=== PATIENT | male | born 1965 | race Caucasian/White ===

== ENCOUNTER 2017-04-04 12:17 | Inpatient (IN) ==
--- NOTE | 2017-04-04 12:44 | Emergency Department Note ---
General Adult HPI - General Chief complaint: Extremity Problem,Nontraumatic Stated complaint: possible DVT, infection to L lower leg Time Seen by Provider: 04/04/17 12:25 Source: patient Mode of arrival: ambulatory Limitations: no limitations - Related Data Home Medications Medication Instructions Recorded Confirmed Atenolol [Tenormin] 25 mg PO DAILY 04/04/17 04/04/17 Lisinopril [Zestril] 40 mg PO DAILY 04/04/17 04/04/17 Omeprazole 20 mg PO DAILY 04/04/17 04/04/17 Simvastatin [Zocor] 80 mg PO HS 04/04/17 04/04/17 Allergies Allergy/AdvReac Type Severity Reaction Status Date / Time No Known Drug Allergies Allergy Verified 04/04/17 12:19 Physical Exam - General Limitations: no limitations Course Vital Signs Temperature 100.3 F H 04/04/17 12:20 Pulse Rate 105 H 04/04/17 12:20 Respiratory Rate 28 H 04/04/17 12:20 Blood Pressure 128/79 04/04/17 12:20 Pulse Oximetry (%) 96 04/04/17 12:20 Temperature 100.3 F H 04/04/17 12:20 Pulse Rate 105 H 04/04/17 12:20 Respiratory Rate 28 H 04/04/17 12:20 Blood Pressure 128/79 04/04/17 12:20 Pulse Oximetry (%) 96 04/04/17 12:20 Disposition Condition: Fair
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
[2017-04-04 13:58] LABS: Basophils # (Auto) 0 K/mcL (0.0-0.3); Basophils % (Auto) 0 % (0.0-2.0); Eosinophils # (Auto) 0 K/mcL (0.0-0.7); Eosinophils % (Auto) 0 % (0.0-7.0); Granulocytes % (Auto) 93.5 % (38.0-78.0); Lymphocytes # (Auto) 0.5 K/mcL (1.5-4.8); Lymphocytes % (Auto) 2.3 % (15.5-49.0); Mean Cell Volume 91.3 fL (80.0-100.0); Mean Corpuscular HGB Conc 33.8 g/dL (31.0-36.0); Mean Corpuscular Hemoglobin 30.8 pg (26.0-34.0); Monocytes % (Auto) 4.2 % (1.0-12.0); Platelet Count 218 K/mcL (140-440); RBC 4.81 M/mcL (4.50-5.90); Red Cell Distribution Width 13.6 % (11.5-14.5)
[2017-04-04] MEDS ORDERED: ACETAMINOPHEN 325 MG TABLET PO ONE (14:03)
[2017-04-04 14:17] LABS: ALT/SGPT 38 U/l (0-40); Albumin/Globulin Ratio 1.3 (1.0-2.3); Alkaline Phosphatase 69 U/L (39-117); Blood Urea Nitrogen 14 mg/dl (6-20); C-Reactive Protein 17.6 mg/dl (0.0-0.8)
[2017-04-04] MEDS ORDERED: 0.9 % SODIUM CHLORIDE 1,000 ML IV ONE ×3 (14:20→15:14)
[2017-04-04] MEDS ORDERED: PIPERACILLIN SODIUM/TAZOBACTAM 3.375 GM in DEXTROSE 5% IN WATER 50 ML IV ONE (14:26)
[2017-04-04] MEDS ORDERED: VANCOMYCIN 1,000 MG in 0.9 % SODIUM CHLORIDE 250 ML IV ONE ×2 (14:27→15:14)
[2017-04-04] MEDS ORDERED: VANCOMYCIN 1,000 MG in 0.9 % SODIUM CHLORIDE 250 ML IV SCH (14:30)
[2017-04-04] MEDS ORDERED: PIPERACILLIN SODIUM/TAZOBACTAM 3.375 GM in DEXTROSE 5% IN WATER 50 ML IV SCH (14:30)
[2017-04-04 14:40] LABS: Erythrocyte Sedimentation Rate 20 mm/hr (0-15)
[2017-04-04] MEDS ORDERED: ZOLPIDEM 5 MG TABLET PO PRN (15:14)
[2017-04-04] MEDS ORDERED: ONDANSETRON 4 MG/2 ML VIAL IV PRN (15:14)
[2017-04-04] MEDS ORDERED: MAGNESIUM HYDROXIDE 30 ML ORAL.SUSP PO PRN (15:14)
[2017-04-04] MEDS ORDERED: VANCOMYCIN PER PHARMACY IV SCH (15:14)
[2017-04-04] MEDS ORDERED: IPRATROPIUM/ALBUTEROL 3 ML AMPUL.NEB NEB PRN (15:14)
[2017-04-04] MEDS ORDERED: NALOXONE HCL 0.4 MG/ML VIAL IV PRN (15:14)
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
--- NOTE | 2017-04-04 16:23 | Ultrasound Report ---
CLINICAL INFORMATION: Left leg pain and swelling TECHNIQUE: Grayscale and color flow Doppler spectral imaging COMPARISON: None. FINDINGS: Negative examination for deep venous thrombosis. Negative left common femoral vein, superficial femoral vein, popliteal vein. Negative calf veins. Greater and lesser saphenous veins are negative. There is a mass in the left inguinal region consistent with prominent lymph node. This measures 4.1 x 1.7 x 3.4 cm IMPRESSION: Negative left lower extremity deep venous ultrasound Interpreted and Authenticated by: Henry Zepeda 04/04/17
[2017-04-04] MEDS: 0.9 % SODIUM CHLORIDE 1,000 ML IV SCH (16:58)
[2017-04-04] MEDS: VANCOMYCIN 1,500 MG in 0.9 % SODIUM CHLORIDE 500 ML IV SCH (16:58)
[2017-04-04] MEDS: PIPERACILLIN SODIUM/TAZOBACTAM 3.375 GM in DEXTROSE 5% IN WATER 50 ML IV SCH (19:59)
[2017-04-04] MEDS: HEPARIN 5,000 UNIT/ML VIAL SQ SCH (20:26)
[2017-04-04] MEDS: SIMVASTATIN 40 MG TABLET PO SCH (20:27)
[2017-04-04] MEDS: 0.9 % SODIUM CHLORIDE 10 ML SYRINGE IV SCH (20:36)
[2017-04-05] MEDS: PIPERACILLIN SODIUM/TAZOBACTAM 3.375 GM in DEXTROSE 5% IN WATER 50 ML IV SCH ×5 (00:43→23:59)
[2017-04-05] MEDS: 0.9 % SODIUM CHLORIDE 1,000 ML IV SCH ×3 (01:31→10:45)
[2017-04-05] MEDS: VANCOMYCIN 1,500 MG in 0.9 % SODIUM CHLORIDE 500 ML IV SCH ×2 (03:36→16:24)
[2017-04-05] MEDS: 0.9 % SODIUM CHLORIDE 10 ML SYRINGE IV SCH ×3 (05:50→21:01)
[2017-04-05 06:09] LABS: Basophils # (Auto) 0 K/mcL (0.0-0.3); Basophils % (Auto) 0.1 % (0.0-2.0); Eosinophils # (Auto) 0 K/mcL (0.0-0.7); Eosinophils % (Auto) 0 % (0.0-7.0); Lymphocytes # (Auto) 0.8 K/mcL (1.5-4.8); Mean Cell Volume 91.8 fL (80.0-100.0); Mean Corpuscular HGB Conc 33.6 g/dL (31.0-36.0); Mean Corpuscular Hemoglobin 30.8 pg (26.0-34.0); Monocytes # (Auto) 0.8 K/mcL (0.1-0.9); Monocytes % (Auto) 4.9 % (1.0-12.0); Platelet Count 173 K/mcL (140-440); RBC 4.32 M/mcL (4.50-5.90)
[2017-04-05 06:30] LABS: ALT/SGPT 38 U/l (0-40); Albumin 3.2 gm/dL (3.2-5.2); Albumin/Globulin Ratio 1.1 (1.0-2.3); Alkaline Phosphatase 56 U/L (39-117); Bilirubin,Direct 0.3 mg/dL (0.0-0.3); Blood Urea Nitrogen 14 mg/dl (6-20); Gamma Glutamyl Transpeptidase 82 U/L (8-61); Magnesium 1.4 mg/dL (1.6-2.5); Uric Acid 4.6 mg/dL (2.5-8.0)
[2017-04-05] MEDS: OMEPRAZOLE 20 MG CAPSULE PO SCH (07:12)
[2017-04-05] MEDS ORDERED: MAGNESIUM SULFATE 2 GM/50 ML BAG IV ONE (08:30)
[2017-04-05] MEDS: ATENOLOL 50 MG TABLET PO SCH (10:44)
[2017-04-05] MEDS: LISINOPRIL 20 MG TABLET PO SCH (10:44)
[2017-04-05] MEDS: HEPARIN 5,000 UNIT/ML VIAL SQ SCH ×2 (10:45→20:06)
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
[2017-04-05] MEDS: oxyCODONE HCL 5 MG TABLET PO PRN (20:06)
[2017-04-05] MEDS: SIMVASTATIN 40 MG TABLET PO SCH (20:06)
[2017-04-05] MEDS: ACETAMINOPHEN 325 MG TABLET PO PRN (20:07)
[2017-04-06 05:06] LABS: Basophils # (Auto) 0 K/mcL (0.0-0.3); Basophils % (Auto) 0.3 % (0.0-2.0); Eosinophils # (Auto) 0.1 K/mcL (0.0-0.7); Eosinophils % (Auto) 1.2 % (0.0-7.0); Granulocytes % (Auto) 78.6 % (38.0-78.0); Lymphocytes # (Auto) 1.2 K/mcL (1.5-4.8); Lymphocytes % (Auto) 12.1 % (15.5-49.0); Mean Cell Volume 92.4 fL (80.0-100.0); Mean Corpuscular HGB Conc 33.4 g/dL (31.0-36.0); Mean Corpuscular Hemoglobin 30.9 pg (26.0-34.0); Monocytes # (Auto) 0.8 K/mcL (0.1-0.9); Monocytes % (Auto) 7.8 % (1.0-12.0); Platelet Count 168 K/mcL (140-440); RBC 4.27 M/mcL (4.50-5.90); Red Cell Distribution Width 14.1 % (11.5-14.5)
[2017-04-06 05:20] LABS: ALT/SGPT 46 U/l (0-40); Albumin 3.1 gm/dL (3.2-5.2); Alkaline Phosphatase 63 U/L (39-117); Bilirubin,Direct < 0.2 mg/dL (0.0-0.3); Blood Urea Nitrogen 12 mg/dl (6-20); Gamma Glutamyl Transpeptidase 103 U/L (8-61); Magnesium 2.1 mg/dL (1.6-2.5); Uric Acid 3.4 mg/dL (2.5-8.0)
[2017-04-06] MEDS: PIPERACILLIN SODIUM/TAZOBACTAM 3.375 GM in DEXTROSE 5% IN WATER 50 ML IV SCH ×3 (05:23→18:55)
[2017-04-06] MEDS: VANCOMYCIN 1,500 MG in 0.9 % SODIUM CHLORIDE 500 ML IV SCH ×2 (06:40→19:46)
[2017-04-06] MEDS: OMEPRAZOLE 20 MG CAPSULE PO SCH (06:41)
[2017-04-06] MEDS: 0.9 % SODIUM CHLORIDE 10 ML SYRINGE IV SCH ×3 (06:41→22:14)
[2017-04-06] MEDS: POTASSIUM CHLORIDE 20 MEQ PACKET PO SCH (08:43)
[2017-04-06] MEDS: NEUTRA PHOS 1 PACKET PO SCH ×2 (08:43→20:44)
[2017-04-06] MEDS: ATENOLOL 50 MG TABLET PO SCH (08:44)
[2017-04-06] MEDS: LISINOPRIL 20 MG TABLET PO SCH (08:46)
[2017-04-06] MEDS: HEPARIN 5,000 UNIT/ML VIAL SQ SCH ×2 (08:48→20:44)
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
[2017-04-06] MEDS ORDERED: FUROSEMIDE 20 MG TABLET PO ONE (12:47)
[2017-04-06] MEDS ORDERED: TETANUS AND DIPHTHERIA TOX IM ONE (12:48)
[2017-04-06] MEDS ORDERED: IPRATROPIUM/ALBUTEROL 3 ML AMPUL.NEB NEB PRN (13:04)
[2017-04-06] MEDS: 0.45 % SODIUM CHLORIDE 1,000 ML IV SCH (14:00)
[2017-04-06] MEDS: oxyCODONE HCL 5 MG TABLET PO PRN ×2 (15:24→20:50)
[2017-04-06] MEDS: SIMVASTATIN 40 MG TABLET PO SCH (20:44)
[2017-04-06] MEDS: ACETAMINOPHEN 325 MG TABLET PO PRN (22:19)
[2017-04-07] MEDS: PIPERACILLIN SODIUM/TAZOBACTAM 3.375 GM in DEXTROSE 5% IN WATER 50 ML IV SCH ×4 (00:02→18:30)
[2017-04-07] MEDS: oxyCODONE HCL 5 MG TABLET PO PRN ×4 (03:26→20:36)
[2017-04-07 05:42] LABS: Basophils # (Auto) 0 K/mcL (0.0-0.3); Basophils % (Auto) 0.3 % (0.0-2.0); Eosinophils # (Auto) 0.3 K/mcL (0.0-0.7); Granulocytes % (Auto) 66.2 % (38.0-78.0); Lymphocytes # (Auto) 1.9 K/mcL (1.5-4.8); Lymphocytes % (Auto) 17.9 % (15.5-49.0); Mean Cell Volume 91.8 fL (80.0-100.0); Mean Corpuscular HGB Conc 34.2 g/dL (31.0-36.0); Mean Corpuscular Hemoglobin 31.4 pg (26.0-34.0); Monocytes # (Auto) 1.4 K/mcL (0.1-0.9); Monocytes % (Auto) 12.6 % (1.0-12.0); Platelet Count 208 K/mcL (140-440); RBC 4.15 M/mcL (4.50-5.90); Red Cell Distribution Width 13.9 % (11.5-14.5)
[2017-04-07] MEDS: VANCOMYCIN 1,500 MG in 0.9 % SODIUM CHLORIDE 500 ML IV SCH ×4 (05:54→16:16)
[2017-04-07 05:55] LABS: ALT/SGPT 54 U/l (0-40); Albumin 3.4 gm/dL (3.2-5.2); Alkaline Phosphatase 85 U/L (39-117); Bilirubin,Direct 0.2 mg/dL (0.0-0.3); Blood Urea Nitrogen 10 mg/dl (6-20); Gamma Glutamyl Transpeptidase 126 U/L (8-61); Magnesium 1.8 mg/dL (1.6-2.5); Uric Acid 2.9 mg/dL (2.5-8.0)
[2017-04-07] MEDS: 0.9 % SODIUM CHLORIDE 10 ML SYRINGE IV SCH ×2 (06:44→12:30)
[2017-04-07] MEDS: 0.45 % SODIUM CHLORIDE 1,000 ML IV SCH (07:00)
[2017-04-07] MEDS: OMEPRAZOLE 20 MG CAPSULE PO SCH (07:16)
[2017-04-07] MEDS: ACETAMINOPHEN 325 MG TABLET PO PRN ×3 (07:18→20:36)
[2017-04-07] MEDS ORDERED: FUROSEMIDE 20 MG/2 ML VIAL IV ONE (07:25)
[2017-04-07] MEDS: POTASSIUM CHLORIDE 20 MEQ PACKET PO SCH (08:07)
[2017-04-07] MEDS: HEPARIN 5,000 UNIT/ML VIAL SQ SCH ×2 (08:51→20:35)
[2017-04-07] MEDS: ATENOLOL 50 MG TABLET PO SCH (08:52)
[2017-04-07] MEDS: NEUTRA PHOS 1 PACKET PO SCH ×2 (08:52→20:35)
[2017-04-07] MEDS: LISINOPRIL 20 MG TABLET PO SCH (09:36)
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
[2017-04-07] MEDS: SILVER SULFADIAZINE CREAM.TOP 25GM TOPICAL SCH (13:35)
--- NOTE | 2017-04-07 19:42 | General Surgery Consult Note ---
History of Present Illness Patient information: Note initiated : 04/07/17 at 7:31 pm Service Date, if different from initiated Date: [] Patient: Daniel Obando 52 y/o M admitted on 04/04/17 for Possible DVT, Infection L Leg/Sepsis, Cellulitis. Chief Complaint: [] Consult date: 04/07/17 Requesting physician: Gaby Prather (Evaluation for cellulitis LLE) History of present illness: I saw this gentleman in room [address],[facility] floor along with nursing staff and with Dr. Jay, Hospitalist physician later. Patient's was present in the room on both occasions. Currently they are vacationing here in [facility]. This is a 52 year old gentleman from [place], admitted via ER about 4 days ago with cellulitis of LLE. He is non smoker and non-alcoholic. Being treated with broad spectrum IV antibiotics and responding to same clinically. He had soft tissue and lymph edema of LLE manly over the leg and some what over the lower thigh area. There is resolving pressure related dermatitis of posterior leg which is constantly on pillows. Patient has h/o diabetes without PAD symptoms. He had suffered from similar illness in PAST whilst being outdoor and on bare feet. Needed IV antibiotics and hospitalization. Venous Doppler study of LLE is negative for DVT. Medications and Allergies Home Medications Medication Instructions Recorded Confirmed Type Atenolol [Tenormin] 25 mg PO DAILY 04/04/17 04/04/17 History Lisinopril [Zestril] 40 mg PO DAILY 04/04/17 04/04/17 History Omeprazole 20 mg PO DAILY 04/04/17 04/04/17 History Simvastatin [Zocor] 80 mg PO DAILY 04/04/17 04/04/17 History Allergies Allergy/AdvReac Type Severity Reaction Status Date / Time No Known Drug Allergies Allergy Verified 04/04/17 15:15 Exam Temp Pulse Resp BP Pulse Ox 97.5 F 86 20 145/74 97 04/07/17 16:00 04/07/17 16:00 04/07/17 16:00 04/07/17 16:00 04/07/17 16:00 - General physical appearance well developed, well nourished, no distress, no pain, other (Pitting assymtrical edematous LLE from ankle to lower thigh. ) - Eyes PERRL, normal ocular movement - ENT normal pinna, normal nares, normal mucosa, no hearing loss, no congestion - Head Head exam IM: Present: atraumatic, normal inspection, normocephalic - Neck no masses, no bruits, trachea midline, no lymphadectomy, no venous distension - Cardiovascular Cardiovascular exam IM: Present: normal rate and rhythm - Respiratory normal expansion, normal respiratory effort, clear to auscultation - Abdomen Abdomen: Present: soft, non tender, bowel sounds - Genitourinary Present: normal penis with no external lesions, testicles present - Integumentary Present: other (resolving dermatitis and folliculits of hair maily leg area, and some anterior lower thigh. ) - Neurologic Present: normal coordination, other (cooperative and good historian. NO focal neurological deficits. ) - Musculoskeletal Present: other (Dystrophyic fungal toe nails. Onychogryposis. Chronic dry open epidermal / dermal puncture ulcer wound at thip of left great toe with a deformed and fungal nail. ) - Psychiatric Present: oriented to time, oriented to person, oriented to place, speech is normal, memory intact, other (Keen to return home to [place]. ) Results - Labs 04/07/17 04:23 04/07/17 04:23 Abnormal lab results 04/07/17 04/07/17 Range/Units 04:23 04:23 RBC 4.15 L (4.50-5.90) M/mcL Hgb 13.0 L (13.5-16.5) g/dL Hct 38.0 L (41.0-55.0) % [place] % (Auto) 12.6 H (1.0-12.0) % [place] # (Auto) 1.4 H (0.1-0.9) K/mcL GGT 126 H (8-61) U/L AST 52 H (0-37) U/l ALT 54 H (0-40) U/l Lactate Dehydrogenase 251 H (94-250) U/L Triglycerides 192 H (<150) mg/dl Diabetes panel 04/07/17 Range/Units 04:23 Sodium 139 (133-145) mmol/L Potassium 3.5 (3.3-5.1) mmol/L Chloride 99 (96-108) mmol/L Carbon Dioxide 26 (22-30) mmol/L BUN 10 (6-20) mg/dl Creatinine 1.0 (0.7-1.2) mg/dl Glucose 102 (70-105) mg/dL Calcium 8.6 (8.6-10.4) mg/dl AST 52 H (0-37) U/l ALT 54 H (0-40) U/l Alkaline Phosphatase 85 (39-117) U/L Total Protein 6.7 (5.9-8.4) gm/dL Albumin 3.4 (3.2-5.2) gm/dL Triglycerides 192 H (<150) mg/dl Calcium panel 04/07/17 Range/Units 04:23 Calcium 8.6 (8.6-10.4) mg/dl Phosphorus 2.8 (2.7-4.5) mg/dL Albumin 3.4 (3.2-5.2) gm/dL Pituitary panel 04/07/17 Range/Units 04:23 Sodium 139 (133-145) mmol/L Potassium 3.5 (3.3-5.1) mmol/L Chloride 99 (96-108) mmol/L Carbon Dioxide 26 (22-30) mmol/L BUN 10 (6-20) mg/dl Creatinine 1.0 (0.7-1.2) mg/dl Glucose 102 (70-105) mg/dL Calcium 8.6 (8.6-10.4) mg/dl Adrenal panel 04/07/17 Range/Units 04:23 Sodium 139 (133-145) mmol/L Potassium 3.5 (3.3-5.1) mmol/L Chloride 99 (96-108) mmol/L Carbon Dioxide 26 (22-30) mmol/L BUN 10 (6-20) mg/dl Creatinine 1.0 (0.7-1.2) mg/dl Glucose 102 (70-105) mg/dL Calcium 8.6 (8.6-10.4) mg/dl Total Bilirubin 0.8 (0.0-1.0) mg/dL AST 52 H (0-37) U/l ALT 54 H (0-40) U/l Alkaline Phosphatase 85 (39-117) U/L Total Protein 6.7 (5.9-8.4) gm/dL Albumin 3.4 (3.2-5.2) gm/dL All other labs normal. Assessment and Plan (1) Onychogryposis of toenail Status: Chronic Priority: Low Comment: PATIENT RECOMMENDED TO FOLLOW UP WITH MEDICAL BILLING REPRESENTATIVE FOR TOE NAIL/S REMOVAL OR TRIMMING APPROPRITE. (2) Dermatitis due to sun Status: Acute Priority: Medium Comment: Clean LLE with Chlorhexidene soap daily, pat dry with wash cloth. Apply Silvadene creme to poasterior left leg and cover with Kerlix gauze from toes to knee. Once daily for 10 days. (3) Dermatitis fungal Status: Chronic Priority: Low
[2017-04-07] MEDS: SIMVASTATIN 40 MG TABLET PO SCH (20:36)
[2017-04-08] MEDS: 0.9 % SODIUM CHLORIDE 10 ML SYRINGE IV SCH ×4 (00:03→21:12)
[2017-04-08] MEDS: VANCOMYCIN 1,500 MG in 0.9 % SODIUM CHLORIDE 500 ML IV SCH ×2 (03:44→15:34)
[2017-04-08] MEDS: PIPERACILLIN SODIUM/TAZOBACTAM 3.375 GM in DEXTROSE 5% IN WATER 50 ML IV SCH ×6 (05:30→23:42)
[2017-04-08] MEDS: oxyCODONE HCL 5 MG TABLET PO PRN ×4 (05:30→23:43)
[2017-04-08] MEDS: ACETAMINOPHEN 325 MG TABLET PO PRN ×4 (05:30→23:42)
[2017-04-08] MEDS: OMEPRAZOLE 20 MG CAPSULE PO SCH (07:09)
[2017-04-08 07:17] LABS: Basophils # (Auto) 0 K/mcL (0.0-0.3); Basophils % (Auto) 0.3 % (0.0-2.0); Eosinophils # (Auto) 0.3 K/mcL (0.0-0.7); Eosinophils % (Auto) 3.1 % (0.0-7.0); Granulocytes % (Auto) 66.8 % (38.0-78.0); Lymphocytes # (Auto) 2.1 K/mcL (1.5-4.8); Lymphocytes % (Auto) 18.8 % (15.5-49.0); Mean Cell Volume 91.9 fL (80.0-100.0); Mean Corpuscular HGB Conc 33.7 g/dL (31.0-36.0); Monocytes # (Auto) 1.2 K/mcL (0.1-0.9); Platelet Count 243 K/mcL (140-440); Red Cell Distribution Width 13.9 % (11.5-14.5)
[2017-04-08] MEDS ORDERED: FUROSEMIDE 20 MG/2 ML VIAL IV ONE (07:27)
[2017-04-08 07:43] LABS: ALT/SGPT 53 U/l (0-40); Albumin 3.4 gm/dL (3.2-5.2); Alkaline Phosphatase 85 U/L (39-117); Bilirubin,Direct < 0.2 mg/dL (0.0-0.3); Blood Urea Nitrogen 11 mg/dl (6-20); Gamma Glutamyl Transpeptidase 120 U/L (8-61); Magnesium 1.8 mg/dL (1.6-2.5); Uric Acid 2.9 mg/dL (2.5-8.0)
[2017-04-08] MEDS: NEUTRA PHOS 1 PACKET PO SCH ×2 (08:52→21:11)
[2017-04-08] MEDS: POTASSIUM CHLORIDE 20 MEQ PACKET PO SCH (08:52)
[2017-04-08] MEDS: LISINOPRIL 20 MG TABLET PO SCH (08:52)
[2017-04-08] MEDS: HEPARIN 5,000 UNIT/ML VIAL SQ SCH ×2 (08:52→21:11)
[2017-04-08] MEDS: ATENOLOL 50 MG TABLET PO SCH (08:52)
--- NOTE | 2017-04-08 10:40 | Internal Med Progress Note ---
Medical - PN: Subj Patient information: Note initiated : 04/08/17 at 10:40 am Patient: Daniel Obando 52 y/o M admitted on 04/04/17 for Possible DVT, Infection L Leg/Sepsis, Cellulitis. Interval history: April 04, 2017: History of present illness: Mr. Obando is a 52 year old male who presented to the ER with his for complaints of not feeling well since last night. Originally a resident of [place], is here to visit family. He was supposed to fly out today. He notes last night he was fine till evening and then he started having chills and rigors, subjective sensations of fever, blankets would not help much. He had some nausea and vomiting x 2. He also noted some redness and wramrth in the left lower leg with some pain. He drank some powerade and had one episode of loose stool He complained of weakness and fatigue. His therefore brought him to the Er In the Er he was febrile on presentation, tachycardic, lab work with elevated wbc, left leg had significant celllutlitis, he was admitted to the hospital for further management The patient notes he had injued his left leg 12 yrs ago, and it resulted in a chr wound which took a year to heal, he has had 3 subsequent infections since then, all of which over last 3-4 yrs in the left leg, denies any imaging done for same. last admission was a few months ago, where he had to stay in the hospital for 3- 4 days. April 06, 2017: Today, the patient notes his leg is still quite swollen and quite tender. He thinks the redness is possibly receded somewhat from the inked margins. He does still feel a little feverish at times. His tells me today, that the day that this happened, he was out on a boat, and barefoot. He stubbed his toe on a piece of metal, and did have a puncture wound. He believes he had a tetanus shot 4 or 5 years ago. Otherwise, he currently denies headaches or dizziness, sore throat, chest pain or palpitations, shortness of breath, abdominal pain, nausea or vomiting. He had a couple of loose stools yesterday,, but none so far today. He denies dysuria. He has a very slight cough. He did have a previous accident that caused a left leg injury. He has had at least one other episode of cellulitis in the same area. April 07: Today, the patient notes that his leg feels a little more swollen, and is getting more uncomfortable to walk on. The rash has extended all the way around his leg now just on the front and sides. He says he is still having some occasional chills, but is not sure about overt fever Otherwise, he denies sore throat or cough, chest pain or palpitations, shortness of breath, abdominal pain, nausea or vomiting, diarrhea or constipation, dysuria. -I did see the patient a second time today, with Dr. Barnett. I felt that the patient's edema was spreading into the upper leg, but Dr. alamo he does not feel that it is. He thinks the clinical exam is just lagging behind the improvement in the patient's test results. -The patient and his are still concerned, as they have been approximately [address] home back to [place]. He is about 5 L ahead on fluids. -Liver function tests are still mildly elevated today. April 08: Today, the patient thinks that his leg is a little less swollen, but continues to be quite red and tender. We reviewed his options of staying here to continue diuresis and IV antibiotics and leg elevation, versus being discharged , so that he can make the [address] home. He and his are really not comfortable with the degree of ongoing swelling and redness. Otherwise, he thinks his leg looks a bit better. He denies fever chills, chest pain or shortness of breath, GI or symptoms. - Constitutional Vitals: Vital Signs Temp Pulse Resp BP Pulse Ox 97.3 F 86 20 121/72 96 04/08/17 08:00 04/08/17 03:43 04/08/17 08:00 04/08/17 08:00 04/08/17 08:00 Period Temp Pulse Resp BP Sys/Alfredo Pulse Ox Last 24 Hr 97.2 F-98.6 F 79-86 16-24 120-145/72-75 96-99 Intake and Output 04/07/17 04/08/17 04/08/17 21:59 05:59 13:59 Intake Total 640 / 640 450 / 450 Output Total 751 / 751 900 / 900 1500 / 1500 Balance -111 / -111 -450 / -450 -1500 / -1500 Weight 302 lb 8 oz Intake & Output: Intake & Output 04/07/17 04/08/17 04/08/17 21:59 05:59 13:59 Intake Total 640 / 640 450 / 450 Output Total 751 / 751 900 / 900 1500 / 1500 Balance -111 / -111 -450 / -450 -1500 / -1500 Weight 302 lb 8 oz Intake: IV 550 / 550 50 / 50 Zosyn 3.375 gm In 50 / 50 50 / 50 Dextrose 5% in Water 50 ml @ 100 mls/hr IV Q6H [facility] Rx#:[id number] Vancomycin 1,500 mg In 500 / 500 Sodium Chloride 0.9% 500 ml @ 333.3 mls/hr IV Q12H GERMAINE Rx#:[id number] Oral 90 / 90 400 / 400 Output: Void Amount 750 / 750 900 / 900 1500 / 1500 Stool Other: Meal Dinner Breakfast Percent of Meal Consumed 100% 100% Feeding Ability Independent # Voids 1 2 # Bowel Movements 1 On exam, he is a well-developed, overweight white male who peers to be a bit more comfortable today. Neck is supple without obvious JVD or lymphadenopathy. Cardiac exam shows regular rate and rhythm. Lungs are clear to auscultation. Abdomen is obese but soft and nontender. Extremities -right lower leg appears normal. -Left leg below the knee is a little less swollen with erythema and warmth and about 2-3+ pitting edema. The erythema now appears to be receding a bit within the upper and lower inked margins. The erythema wraps around the full circumference of the leg. The leg is a little less tense with edema. Neurologic exam is grossly nonfocal. Medical - PN: Obj Da - Labs CBC & Chem 7: 04/08/17 05:25 04/08/17 05:25 Labs: Abnormal Lab Results 04/08/17 04/08/17 04/07/17 05:25 05:25 04:23 RBC 4.20 L Hgb 13.0 L Hct 38.6 L Gran % Lymph % (Auto) [place] % (Auto) Lymph # (Auto) [place] # (Auto) 1.2 H Sodium Calcium Phosphorus GGT 120 H 126 H AST 46 H 52 H ALT 53 H 54 H Lactate Dehydrogenase 285 H 251 H Albumin Triglycerides 192 H 04/07/17 04/06/17 04/06/17 04:23 03:10 03:10 RBC 4.15 L 4.27 L Hgb 13.0 L 13.2 L Hct 38.0 L 39.5 L Gran % 78.6 H Lymph % (Auto) 12.1 L [place] % (Auto) 12.6 H Lymph # (Auto) 1.2 L [place] # (Auto) 1.4 H Sodium 132 L Calcium 8.5 L Phosphorus 2.0 L GGT 103 H AST 56 H ALT 46 H Lactate Dehydrogenase Albumin 3.1 L Triglycerides 184 H April 06: Vancomycin trough is normal at 8.0 April 05: C. difficile screen is negative. April 04: D-dimer is positive at 0.87 Lactic acid is normal at 2.0 Blood cultures are negative so far. EKG shows normal sinus rhythm at a rate of 96. T waves are mildly flattened in leads III and F. There is no old tracing available. Left lower extremity venous Doppler shows no DVT. There is a mass in the left inguinal region consistent with a prominent lymph node, measuring 4.1 x 1.7 x 3.4 cm Meds: Medications Acetaminophen (Tylenol) 650 mg PO Q6HP PRN PRN Reason: PAIN/FEVER > 101 Last Admin: 04/08/17 05:30 Dose: 650 mg Albuterol/Ipratropium (Duoneb) 3 ml NEB Q4HRT PRN PRN Reason: Shortness Of Breath Or Wheezing Atenolol (Tenormin) 25 mg PO DAILY [facility] Last Admin: 04/08/17 08:52 Dose: 25 mg Heparin Sodium (Porcine) (Heparin) 5,000 unit SQ Q12 [facility] Last Admin: 04/08/17 08:52 Dose: 5,000 unit Piperacillin Sod/Tazobactam (Sod 3.375 gm/ Dextrose) 50 mls @ 100 mls/hr IV Q6H [facility] Last Admin: 04/08/17 06:31 Dose: 100 mls/hr Vancomycin HCl 1,500 mg/ (Sodium Chloride) 500 mls @ 333.3 mls/hr IV Q12H [facility] Last Admin: 04/08/17 03:44 Dose: 250 mls/hr Sodium Chloride (Sodium Chloride 0.45%) 1,000 mls @ 20 mls/hr IV .Q24H [facility] Last Admin: 04/07/17 07:00 Dose: 20 mls/hr Lisinopril (Zestril) 40 mg PO DAILY [facility] Last Admin: 04/08/17 08:52 Dose: 40 mg Magnesium Hydroxide (Milk Of Magnesia) 30 ml PO DAILYP PRN PRN Reason: Constipation Naloxone HCl (Narcan) 0.1 mg IV Q2MIN PRN PRN Reason: Opiate Reversal Omeprazole (Prilosec) 20 mg PO ACB [facility] Last Admin: 04/08/17 07:09 Dose: 20 mg Ondansetron HCl (Zofran) 4 mg IV Q6HP PRN PRN Reason: Nausea And Vomiting Oxycodone HCl (Roxicodone) 5 mg PO Q4HP PRN PRN Reason: Pain Last Admin: 04/08/17 05:30 Dose: 5 mg Potassium Chloride (Klor-Con) 40 meq PO QAMCC [facility] Last Admin: 04/08/17 08:52 Dose: 40 meq Potassium/Phosphorus/Sodium (Neutra Phos) 2 packet PO BID [facility] Last Admin: 04/08/17 08:52 Dose: 2 packet Silver Sulfadiazine (Silvadene) 1 dose TOPICAL DAILY [facility] Last Admin: 04/07/17 13:35 Dose: 1 dose Simvastatin (Zocor) 80 mg PO HS [facility] Last Admin: 04/07/17 20:36 Dose: 80 mg Sodium Chloride (Saline Flush) 10 ml IV Q8 [facility] Last Admin: 04/08/17 06:30 Dose: Not Given Vancomycin HCl (Vancomycin Per Pharmacy) 1 order IV UD [facility] Zolpidem Tartrate (Ambien) 5 mg PO HSP PRN PRN Reason: Insomnia Medical - PN: A/P - Time Spent With Patient Total time spent is greater than 50% in coordination of care (as documented) at patient's floor/unit and/or counseling patient: 15 - 24 minutes - Narrative A/P Narrative: #1. Sepsis: due to cellulitis, slowly resolving. #2. Infectious disease. This patient presented with fairly severe cellulitis of his left lower extremity , possibly caused by a puncture wound in his left great toe. White blood cell count was initially markedly elevated at 23,000, but is now back down to normal. He is now been afebrile for more than 24 hours. His leg erythema and edema have been quite slow to resolve. He has a very long drive home, and he and his are nervous about that trip with his leg is swollen. They requested to stay 1 more day just to be sure everything is continuing to improve. -Dr. Barnett suggested that we also do topical wound care, with chlorhexidine wash, followed by Silvadene and gauze. - DVT scan was neg, -I reviewed with him that he really should not be running around barefoot, as this increases his risk for skin puncture, and he is apparently prone to cellulitis in his left lower leg. -Tetanus vaccine was updated. #3. Cardiac. HTN: -Home atenolol and lisinopril were resumed. Blood pressures are normal. -Cardiac diet. - CAD: no cp, ekg does not show acute changes, continue statin and asa, and beta blockers. #4. GI. - GERD on prilosec continue same. -LFTs are a bit elevated. This may be due to illness, medications. He is unsure if he is ever been screened for hepatitis, but says he probably had that done at the [place], where he normally follows up. These are starting to trend down. Recheck in the morning. #5. DVT prophylaxis: Hep sq #6. Full code #7. Fluids and nutrition. Phosphorus levels, potassium, magnesium were all low . These have been corrected. 8. Pulmonary. Reported sleep apnea, continue CPAP at at bedtime. 9. We are having difficulty with IV access. Nurses requested TKO IV fluids. He is now diuresing, after receiving IV Lasix. Approximately 25 minutes was spent today, reviewing the patient's chart and test results, interviewing and examining him, reviewing plan of care with the patient and his , and writing orders. Medical - PN: Qual - Stroke Symptom Onset Unknown: No - VTE Deep Vein Thrombosis/Pulmonary Embolism Present on Admission: No
--- NOTE | 2017-04-08 11:49 | General Surgery Progress Note ---
Subjective Patient reports: other (OOB and ambulated. No NEW subjective complaints. Uneventful night. I SAW this patient on morning rounds with his in room. ) Narrative: Note initiated : 04/08/17 at 11:44 am Service Date, if different from initiated Date: [] Patient: Daniel Obando 52 y/o M admitted on 04/04/17 for Possible DVT, Infection L Leg/Sepsis, Cellulitis. Chief Complaint: [] Objective Temp Pulse Resp BP Pulse Ox 97.3 F 86 20 121/72 96 04/08/17 08:00 04/08/17 03:43 04/08/17 08:00 04/08/17 08:00 04/08/17 08:00 AVSS. No changes in OTTO. L/E Stable versus gradually resolving edema of LEFT LE. No evidence of DVT on U/S. Folliculitis of leg and cellulitis / dermatitis of leg has significantly improved since is admission. He has onychogryposis and deformed fungal crusted toe nails, especially of left foot. Patient will se his PCP and get referrals for this upon returning home to [place]. - Additional Data Intake & Output - Last 24 hours: Intake & Output 04/06/17 04/07/17 04/08/17 04/09/17 05:59 05:59 05:59 05:59 Intake Total 1680 / 1680 2250 / 2250 1979 / 1979 50 / 50 Output Total 925 / 925 1450 / 1450 3201 / 3201 1500 / 1500 Balance 755 / 755 800 / 800 -1221 / -1221 -1450 / -1450 Weight 304 lb 305 lb 302 lb 8 oz - Labs 04/08/17 05:25 04/08/17 05:25 Diabetes panel 04/08/17 Range/Units 05:25 Sodium 138 (133-145) mmol/L Potassium 3.4 (3.3-5.1) mmol/L Chloride 100 (96-108) mmol/L Carbon Dioxide 26 (22-30) mmol/L BUN 11 (6-20) mg/dl Creatinine 1.0 (0.7-1.2) mg/dl Glucose 95 (70-105) mg/dL Calcium 8.6 (8.6-10.4) mg/dl AST 46 H (0-37) U/l ALT 53 H (0-40) U/l Alkaline Phosphatase 85 (39-117) U/L Total Protein 6.7 (5.9-8.4) gm/dL Albumin 3.4 (3.2-5.2) gm/dL Triglycerides 144 (<150) mg/dl Calcium panel 04/08/17 Range/Units 05:25 Calcium 8.6 (8.6-10.4) mg/dl Phosphorus 3.1 (2.7-4.5) mg/dL Albumin 3.4 (3.2-5.2) gm/dL Pituitary panel 04/08/17 Range/Units 05:25 Sodium 138 (133-145) mmol/L Potassium 3.4 (3.3-5.1) mmol/L Chloride 100 (96-108) mmol/L Carbon Dioxide 26 (22-30) mmol/L BUN 11 (6-20) mg/dl Creatinine 1.0 (0.7-1.2) mg/dl Glucose 95 (70-105) mg/dL Calcium 8.6 (8.6-10.4) mg/dl Adrenal panel 04/08/17 Range/Units 05:25 Sodium 138 (133-145) mmol/L Potassium 3.4 (3.3-5.1) mmol/L Chloride 100 (96-108) mmol/L Carbon Dioxide 26 (22-30) mmol/L BUN 11 (6-20) mg/dl Creatinine 1.0 (0.7-1.2) mg/dl Glucose 95 (70-105) mg/dL Calcium 8.6 (8.6-10.4) mg/dl Total Bilirubin 0.8 (0.0-1.0) mg/dL AST 46 H (0-37) U/l ALT 53 H (0-40) U/l Alkaline Phosphatase 85 (39-117) U/L Total Protein 6.7 (5.9-8.4) gm/dL Albumin 3.4 (3.2-5.2) gm/dL Assessment and Plan (1) Onychogryposis of toenail Problem details: PATIENT RECOMMENDED TO FOLLOW UP WITH STORE PLANNER FOR TOE NAIL/ S REMOVAL OR TRIMMING APPROPRITE. Status: Chronic Assessment and plan: Continue supportive care. May take shower with chlorhexidine soap Daily and apply Silvadene cream to right posterior calf and leg. OK for discharge from wound care point of view with current management. PO antibiotics Augmentin 875 mg PO BID for 7 days, I will sign off at this time. Thanks. Current Visit: Yes (2) Dermatitis due to sun Problem details: Clean LLE with Chlorhexidene soap daily, pat dry with wash cloth. Apply Silvadene creme to poasterior left leg and cover with Kerlix gauze from toes to knee. Once daily for 10 days. Status: Acute Current Visit : Yes (3) Dermatitis fungal Status: Chronic Current Visit: Yes - Time Spent With Patient Total time spent is greater than 50% in coordination of care (as documented) at patient's floor/unit and/or counseling patient:
[2017-04-08] MEDS: SILVER SULFADIAZINE CREAM.TOP 25GM TOPICAL SCH (15:02)
[2017-04-08] MEDS: SIMVASTATIN 40 MG TABLET PO SCH (21:11)
[2017-04-09] MEDS: VANCOMYCIN 1,500 MG in 0.9 % SODIUM CHLORIDE 500 ML IV SCH (03:57)
[2017-04-09 06:22] LABS: Basophils # (Auto) 0 K/mcL (0.0-0.3); Basophils % (Auto) 0.3 % (0.0-2.0); Eosinophils # (Auto) 0.4 K/mcL (0.0-0.7); Eosinophils % (Auto) 2.6 % (0.0-7.0); Granulocytes % (Auto) 70.4 % (38.0-78.0); Lymphocytes # (Auto) 2.3 K/mcL (1.5-4.8); Lymphocytes % (Auto) 16.8 % (15.5-49.0); Mean Cell Volume 91.8 fL (80.0-100.0); Mean Corpuscular Hemoglobin 31.2 pg (26.0-34.0); Monocytes # (Auto) 1.3 K/mcL (0.1-0.9); Monocytes % (Auto) 9.9 % (1.0-12.0); Platelet Count 286 K/mcL (140-440); RBC 4.27 M/mcL (4.50-5.90); Red Cell Distribution Width 13.6 % (11.5-14.5)
[2017-04-09] MEDS: 0.9 % SODIUM CHLORIDE 10 ML SYRINGE IV SCH (06:31)
[2017-04-09] MEDS: PIPERACILLIN SODIUM/TAZOBACTAM 3.375 GM in DEXTROSE 5% IN WATER 50 ML IV SCH ×2 (06:31→11:55)
[2017-04-09 06:40] LABS: ALT/SGPT 52 U/l (0-40); Albumin 3.3 gm/dL (3.2-5.2); Albumin/Globulin Ratio 0.9 (1.0-2.3); Alkaline Phosphatase 80 U/L (39-117); Bilirubin,Direct < 0.2 mg/dL (0.0-0.3); Blood Urea Nitrogen 11 mg/dl (6-20); Gamma Glutamyl Transpeptidase 122 U/L (8-61); Magnesium 1.8 mg/dL (1.6-2.5); Uric Acid 2.7 mg/dL (2.5-8.0)
[2017-04-09] MEDS: oxyCODONE HCL 5 MG TABLET PO PRN (07:13)
[2017-04-09] MEDS: ACETAMINOPHEN 325 MG TABLET PO PRN (07:14)
[2017-04-09] MEDS: OMEPRAZOLE 20 MG CAPSULE PO SCH (07:27)
[2017-04-09] MEDS: POTASSIUM CHLORIDE 20 MEQ PACKET PO SCH (08:44)
[2017-04-09] MEDS: NEUTRA PHOS 1 PACKET PO SCH (08:45)
[2017-04-09] MEDS: HEPARIN 5,000 UNIT/ML VIAL SQ SCH (08:45)
[2017-04-09] MEDS: LISINOPRIL 20 MG TABLET PO SCH (08:45)
[2017-04-09] MEDS: ATENOLOL 50 MG TABLET PO SCH (08:46)
[2017-04-09] MEDS: SILVER SULFADIAZINE CREAM.TOP 25GM TOPICAL SCH (09:59)
--- NOTE | 2017-04-09 11:24 | Discharge Summary ---
Medical - DS: Prov Patient information: Note initiated : 04/09/17 at 11:24 am Service Date, if different from initiated Date: [] Patient: Daniel Obando 52 y/o M admitted on 04/04/17 for Possible DVT, Infection L Leg/Sepsis, Cellulitis. Chief Complaint: [] Date of admission: 04/04/17 14:59 Discharge date: 04/09/17 Primary care physician: In [place]: Admitting clinician: Kassie Ponce Consults: 04/07/17 07:21 Consult to Physician [CONS] Routine Comment: LLE cellulitis, toe wound Consulting Provider: Tre Barnett Reason For Exam: Physician to Consult Attending physician on discharge: Gaby Prather Medical - DS: Meds - Discharge Medications Prescriptions: Amoxicillin/Potassium Clav [Augmentin] 875 mg PO Q12H #10 tablet Aspirin/Calcium Carbonate/Mag [Aspirin Buffered 325 mg Tab] 325 mg PO DAILY #1 tablet Compression Socks, Medium [Futuro Restoring] 1 each MC DAILY #1 each Furosemide [Lasix] 20 mg PO BID PRN #10 tablet PRN Reason: Edema Magnesium Oxide 400 mg PO DAILY #10 tablet oxyCODONE/APAP [Percocet 5-325 mg] 1 tab PO Q4H PRN #30 tablet PRN Reason: Pain Potassium Chloride [Klor-Con] 20 meq PO QAMCC PRN #6 packet PRN Reason: Edema Silver Sulfadiazine [Silvadene] 1 dose TOPICAL DAILY #50 gm Active and Home Medications: Discharge medications: Augmentin 875 mg p.o. twice daily 5 days. Aspirin 325 mg, 1 daily, at least until he arrives back home from his road trip. Compression socks to the left lower extremity, whenever up and about, until edema resolved Lasix 20 mg p.o. twice daily as needed continued leg swelling Magnesium oxide 400 mg daily with any dose of Lasix Potassium chloride 20 mEq p.o. daily to twice daily with any dose of Lasix Percocet 53 25 1 tab every 4 hours as needed pain Silver sulfadiazine cream. Wash inflamed skin of the left lower leg daily with chlorhexidine, pat dry, and then apply cream, until skin back to normal. Atenolol 25 mg daily Lisinopril 40 mg daily Omeprazole 20 mg daily Zocor 80 mg daily Previous home Medications Atenolol [Tenormin] 25 mg PO DAILY 04/04/17 [History Confirmed 04/04/17 Last Taken 04/03/17] Lisinopril [Zestril] 40 mg PO DAILY 04/04/17 [History Confirmed 04/04/17 Last Taken 04/03/17] Omeprazole 20 mg PO DAILY 04/04/17 [History Confirmed 04/04/17 Last Taken ] Simvastatin [Zocor] 80 mg PO DAILY 04/04/17 [History Confirmed 04/04/17 Last Taken 04/03/17] Medical - DS: Hosp Hospital course: Mr. Obando is a 52 year old M Interval history: April 04, 2017: History of present illness: Mr. Obando is a 52 year old male who presented to the ER with his for complaints of not feeling well since last night. Originally a resident of [place], is here to visit family. He was supposed to fly out today. He notes last night he was fine till evening and then he started having chills and rigors, subjective sensations of fever, blankets would not help much. He had some nausea and vomiting x 2. He also noted some redness and wramrth in the left lower leg with some pain. He drank some powerade and had one episode of loose stool He complained of weakness and fatigue. His therefore brought him to the Er. In the Er he was febrile on presentation, tachycardic, lab work with elevated wbc, left leg had significant celllutlitis, he was admitted to the hospital for further management. The patient notes he had injued his left leg 12 yrs ago, and it resulted in a chr wound which took a year to heal, he has had 3 subsequent infections since then, all of which over last 3-4 yrs in the left leg, denies any imaging done for same. last admission was a few months ago, where he had to stay in the hospital for 3- 4 days. April 09, 2017: Hospital course: The patient was admitted and treated with IV Zosyn and vancomycin, for severe left leg cellulitis with sepsis. Initial white blood cell count was 23,000, which dropped to normal the last few days. It did bump up to 13,000 today, for uncertain reasons. His leg swelling and redness have been very slow to respond. We did have Dr. Anibal, of the wound care team, evaluate him as well. He recommended chlorhexidine washes daily, followed by silver sulfadiazine cream, to cut down on any bacterial load. The patient did have a small puncture wound on his left great toe, that happened while he was walking barefoot and stubbed it on something metal on a boat. Tetanus shot was updated. He did receive quite a bit of IV fluids over the course of his stay, so for the last couple of days has really been receiving IV Lasix for diuresis. This seems to be helping with his overall edema. He continues to have significant redness and swelling of the leg, but it is definitely better today. He still has a fair amount of discomfort with ambulation. Otherwise, he denies fever or chills, chest pain or shortness of breath, GI or symptoms. -Liver function tests, including GGT, AST, ALT have all been hovering just above normal. These were normal when he came to the hospital, and I suspect will return to normal. He should have these rechecked with his physician at home. On exam, he is a well-developed, overweight white male who peers to be a bit more comfortable today. Neck is supple without obvious JVD or lymphadenopathy. Cardiac exam shows regular rate and rhythm. Lungs are clear to auscultation. Abdomen is obese but soft and nontender. Extremities -right lower leg appears normal. -Left leg below the knee is a little less swollen with erythema and warmth and about 2+ pitting edema. The erythema now appears to be receding a bit within the upper and lower inked margins. The erythema wraps around the full circumference of the leg. The leg is a little less tense with edema. Neurologic exam is grossly nonfocal. Assessment and plan: #1. Sepsis: due to cellulitis, resolved. #2. Infectious disease. This patient presented with fairly severe cellulitis of his left lower extremity , possibly caused by a puncture wound in his left great toe. White blood cell count was initially markedly elevated at 23,000, dropped back to normal, and then bumped a bit today up to 13,000. Clinically, his leg is finally improving. Redness and warmth and edema are all improving, though still not back to normal. He has been afebrile for more than 48 hours now. -We will discharge him today. Start Augmentin 875 mg p.o. twice daily for the next 5 days. -Continue chlorhexidine washes followed by silver sulfadiazine cream, and leg elevation whenever possible. -Percocet every 4 hours as needed pain -Follow-up with his regular doctor early next week, to review clinical exam, recheck labs, and help decide when he will be comfortable enough to return to work. In the meantime he should keep his leg elevated whenever possible. I also prescribed a compression sock for him to wear for whenever he is upright. -Because they have a long drive home, they are encouraged to stop at least every 2 hours and let him get out and walk around a little bit, to decrease the risk of DVT. He should also take aspirin, 325 mg, per day at least until he gets back home, and then review with his regular doctor. -Because of ongoing edema, I will give him prescriptions for Lasix, potassium, magnesium. He can take these once or twice a day until his edema is at a tolerable level. - DVT scan was neg, -I reviewed with him that he really should not be running around barefoot, as this increases his risk for skin puncture, and he is apparently prone to cellulitis in his left lower leg. -Tetanus vaccine was updated. #3. Cardiac. HTN: -Home atenolol and lisinopril were resumed. Blood pressures are normal. -Cardiac diet. -It is not clear why he does not take a daily aspirin. I would certainly advise that he take aspirin daily during his road trip. - CAD: no cp, ekg did not show acute changes, continue statin and asa, and beta blockers. #4. GI. - GERD on prilosec continue same. -LFTs are a bit elevated. This may be due to illness, medications. He is unsure if he is ever been screened for hepatitis, but says he probably had that done at the [facility], where he normally follows up. These are starting to trend down. Recheck with primary care physician. #5. DVT prophylaxis: Hep sq #6. Full code 8. Pulmonary. Reported sleep apnea, continue CPAP at at bedtime. Approximately 40 minutes was spent today, reviewing patient's test results, interviewing and examining him, reviewing plan of care with the patient and his , and writing orders and prescriptions. Discharge diagnosis: Severe left lower extremity cellulitis. Puncture wound left toe. Secondary discharge diagnosis: Significant edema, requiring IV diuretics. Coronary disease, hypertension Morbid obesity, sleep apnea - Time Spent with Patient Total time spent providing and/or coordinating discharge services: Greater than 30 minutes Medical - DS: Exam - Constitutional Vitals: Vital Signs Temp Pulse Resp BP Pulse Ox 04/09/17 11:20 97.7 F 20 120/74 99 04/09/17 07:14 97.9 F 04/09/17 07:08 97.9 F 20 144/75 96 04/09/17 04:00 97.8 F 77 24 H 128/77 96 04/08/17 23:52 98.0 F 86 24 H 125/75 99 04/08/17 20:00 98.5 F 85 24 H 121/74 97 04/08/17 12:00 97.6 F 20 115/73 97 Intake and Output 04/08/17 04/09/17 04/09/17 21:59 05:59 13:59 Intake Total 1590 / 1590 675 / 675 550 / 550 Output Total 2475 / 2475 950 / 950 Balance -885 / -885 -275 / -275 550 / 550 Intake: IV 550 / 550 50 / 50 550 / 550 Zosyn 3.375 gm In 50 / 50 50 / 50 50 / 50 Dextrose 5% in Water 50 ml @ 100 mls/hr IV Q6H GERMAINE Rx#:[id number] Vancomycin 1,500 mg In 500 / 500 500 / 500 Sodium Chloride 0.9% 500 ml @ 333.3 mls/hr IV Q12H GERMAINE Rx#:[id number] Oral 1040 / 1040 625 / 625 Output: Void Amount 2475 / 2475 950 / 950 Other: Meal Dinner Percent of Meal Consumed 75% Feeding Ability Independent # Voids 3 Weight 297 lb 8 oz Medical - DS: Data Labs on day of discharge: Labs from last 24 hours 04/09/17 04/09/17 05:02 05:02 WBC 13.6 H RBC 4.27 L Hgb 13.3 L Hct 39.2 L MCV 91.8 MCH 31.2 MCHC 34.0 RDW 13.6 Plt Count 286 MPV 8.1 Gran % 70.4 Lymph % (Auto) 16.8 [place] % (Auto) 9.9 Eos % (Auto) 2.6 Baso % (Auto) 0.3 Gran # 9.6 H Lymph # (Auto) 2.3 [place] # (Auto) 1.3 H Eos # (Auto) 0.4 Baso # (Auto) 0 Sodium 137 Potassium 4.0 Chloride 98 Carbon Dioxide 25 Anion Gap 14.0 BUN 11 Creatinine 0.9 GFR Calculation 96 Glucose 98 Uric Acid 2.7 Calcium 8.8 Phosphorus 2.9 Magnesium 1.8 Total Bilirubin 0.8 Direct Bilirubin < 0.2 GGT 122 H AST 42 H ALT 52 H Alkaline Phosphatase 80 Lactate Dehydrogenase 209 Total Protein 6.9 Albumin 3.3 Globulin 3.6 Albumin/Globulin Ratio 0.9 L Triglycerides 134 April 06: Vancomycin trough is normal at 8.0 April 05: C. difficile screen is negative. April 04: D-dimer is positive at 0.87 Lactic acid is normal at 2.0 Blood cultures are negative so far. EKG shows normal sinus rhythm at a rate of 96. T waves are mildly flattened in leads III and F. There is no old tracing available. Left lower extremity venous Doppler shows no DVT. There is a mass in the left inguinal region consistent with a prominent lymph node, measuring 4.1 x 1.7 x 3.4 cm Medical - DS: A/P - Patient/Caregiver Discharge Instructions Activity: increase activity as tolerated, return to work once cleared by your PCP/specialist Diet: Cardiac Additional Instructions: 1. Wound care for discharge per Dr. Barnett: Cleanse bilateral legs, feet, and toes with a diluted solution of chlorhexidine 2 times daily. Using 4 x 4 gauze, clean well between toes with this solution. Pat skin dry skin well, especially between toes. Moisturize legs, feet, and toes with Cera Ve lotion (OTC) 2x daily as well. Follow up with a quality control projectionist when you get home. #2. Take new antibiotic, Augmentin, twice a day with food until gone. -Percocet as needed for pain. I would not recommend driving or doing any dangerous activities while taking this. -Left leg elevated above the level of the abdomen is much as possible. -Please see your regular doctor early next week, to recheck your blood tests, including a CBC and liver panel. -Wear support stockings whenever you are not lying down. -I would strongly consider taking a full-strength aspirin, 325 mg, once a day, until you get back to normal activities, this will help prevent blood clots. You may also review with your doctor if you should be on an aspirin every day for your heart history. Your tetanus shot was updated while you are here. This should last at least 5 years. Prescriptions: Amoxicillin/Potassium Clav [Augmentin] 875 mg PO Q12H #10 tablet Aspirin/Calcium Carbonate/Mag [Aspirin Buffered 325 mg Tab] 325 mg PO DAILY #1 tablet Compression Socks, Medium [Futuro Restoring] 1 each MC DAILY #1 each Furosemide [Lasix] 20 mg PO BID PRN #10 tablet PRN Reason: Edema Magnesium Oxide 400 mg PO DAILY #10 tablet oxyCODONE/APAP [Percocet 5-325 mg] 1 tab PO Q4H PRN #30 tablet PRN Reason: Pain Potassium Chloride [Klor-Con] 20 meq PO QAMCC PRN #6 packet PRN Reason: Edema Silver Sulfadiazine [Silvadene] 1 dose TOPICAL DAILY #50 gm - Follow up Plan Disposition: Home, Self-Care Prognosis: Good Rehab Potential: Good Overall status at discharge: patient is progressing back to baseline Medical - DS: Qual - VTE Deep Vein Thrombosis/Pulmonary Embolism Present on Admission: No
== END 2017-04-09 13:30 | disposition home or self-care (01) | DRG 602 ==
LOC: ED 12:17 → MEDSUR 14:59 → SUATTDRO 14:59 → MEDSUR 15:13
PROVIDERS: ADMIT Internal Medicine; ATTEND Internal Medicine